=== PATIENT | female | born 2000 | race Caucasian/White ===

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

== ENCOUNTER → 2021-01-18 | Outpatient (CLI) | payer OTHER | END | disposition home or self-care (01) | LOC: LAB SHORT 12:40 → LAB 12:40 | DX: R30.9 Painful micturition, unspecified (principal) | CPT/HCPCS: 87086 ==